=== PATIENT | female | born 1940 | race Caucasian/White ===

== ENCOUNTER 2017-09-26 07:42 | Emergency (ER) | payer MEDICARE, OTHER ==
[~2017-09-26] VITALS: Ht 165.1 cm; Wt 93.3 kg
[~2017-09-26 07:42] MED LIST: CYAN1000P IM; LEVO.05 PO; NORC7.5T PO; ST JTAB PO; TOPR25TA2 PO; ZOFR4TAB3 SL
[2017-09-26 07:43] VITALS: BP 189/86; PULSE 81; RESP 16; TEMP 97.5; O2SAT 95
[2017-09-26] MEDS ORDERED: METO1TAB9 PO (08:03)
[2017-09-26] MEDS ORDERED: ASPI1TAB57 PO (08:03)
[2017-09-26] MEDS ORDERED: VITA10002 PO (08:03)
[2017-09-26] MEDS ORDERED: DIAZ5 PO (08:03)
[2017-09-26] MEDS ORDERED: LEVO75TA3 PO (08:03)
--- NOTE | 2017-09-26 08:19 | PD ---
HPI Chief Complaint: Headache Time Seen by Provider: 08:06 Travel History International Travel<30 days: No Contact w/Intl Traveler<30days: No Traveled to known affect area: No History of Present Illness HPI This patient complains of headache. Duration 5 days. Severity is moderate. There is no thunderclap onset. No neurologic deficit. No fever or or injury. She takes no blood thinners be on baby aspirin. Headache is located behind the left ear. It is unusual for the patient to have a headache. No alleviating factors. No exacerbating factors. PFSH Past Medical History Hx Anticoagulant Therapy: Yes (asa 81mg) Heart Rhythm Problems: Yes Cardiac Catheterization: Yes (2013) Cardiovascular Problems: Yes (htn on meds, pacemaker, svt) High Cholesterol: Yes COPD: Yes Coronary Artery Disease: Yes Diminished Hearing: No GERD: Yes Hypertension: Yes Implanted Vascular Access Dvce: Yes Musculoskeletal: Yes Immunizations Current: No Thyroid Disease: Yes (HYPOTHYROID) Tetanus Vaccination: > 5 Years Influenza Vaccination: No ?: Not Menopausal: Yes : 7 Para: 4 Miscarriage: 3 Ectopic : Yes Ovarian Cysts: Yes (RUPTURED OVARY, REMOVED.) Tubal Ligation: Yes Past Surgical History Abdominal Surgery: Yes (EXPLORATORY LAP, ECTOPIC ,) Appendectomy: Yes Cardiac Surgery: Yes (PACEMAKER - 2004) Cholecystectomy: No Ear Surgery: No Endocrine Surgery: No Eye Surgery: Yes (LEFT CATARACT) Genitourinary Surgery: No Gynecologic Surgery: Yes (1.5 OVARY REMOVED.) Joint Replacement: No Oral Surgery: No Pacemaker: Yes (MEDTRONIC-DEMAND PACER) Thoracic Surgery: No Other Surgery: Yes (CAROTID ARTERY LEFT) Social History Alcohol Use: Yes (OCCASIONALLY) Tobacco Use: No (QUIT 09/22/07; SMOKED 1 PPD X 40 YEARS.) Substance Use: No Allergies-Medications (Allergen,Severity, Reaction): Coded Allergies: milk (Unverified Allergy, Severe, "lactose intolerant", 09/26/17) penicillin G (Unverified Allergy, Severe, hives, 09/26/17) povidone-iodine (Unverified Allergy, Severe, RASH, 09/26/17) prochlorperazine (Unverified Allergy, Severe, "mouth swelled", 09/26/17) DYSTONIA atorvastatin (Unverified Adverse Reaction, Severe, "muscle aches", 09/26/17 ) codeine (Unverified Adverse Reaction, Severe, "NAUSEA,MAKES ME CRAZY", ) prednisone (Unverified Adverse Reaction, Severe, HYPER, 09/26/17) Reported Meds & Prescriptions Reported Meds & Active Scripts Active Tramadol (Tramadol HCl) 50 Mg Tab 50 Mg PO Q6H PRN Reported Valium (Diazepam) 5 Mg Tab 5 Mg PO DIRECTED Metoprolol Succinate ER 24 HR (Metoprolol Succinate) 50 Mg Tab 50 Mg PO DAILY Levothyroxine (Levothyroxine Sodium) 75 Mcg Tab 75 Mcg PO DAILY Vitamin B-12 (Cyanocobalamin) 1,000 Mcg Tab 1,000 Mcg PO DAILY Aspirin 81 (Aspirin) 81 Mg Tabdr 81 Mg PO DAILY Review of Systems General / Constitutional: No: Fever Eyes: No: Visual changes HENT: Positive: Headaches Cardiovascular: No: Chest Pain or Discomfort Respiratory: No: Shortness of Breath Gastrointestinal: No: Abdominal Pain Genitourinary: No: Dysuria Musculoskeletal: No: Pain Skin: No Rash Neurologic: Positive: Headache, No: Weakness Psychiatric: No: Depression Endocrine: No: Polydipsia Hematologic/Lymphatic: No: Easy Bruising Physical Exam Narrative GENERAL: Well-nourished, well-developed patient with headache . SKIN: Focused skin assessment reveals no rash and nodules. Skin is Warm and dry. HEAD: Atraumatic. Normocephalic. EYES: Pupils equal and round. No scleral icterus. No injection or drainage. ENT: No nasal bleeding or discharge. Mucous membranes pink and moist. NECK: Trachea midline. No JVD. She has left-sided carotid endarterectomy scar CARDIOVASCULAR: Regular rate and rhythm. No murmur appreciated. RESPIRATORY: No accessory muscle use. Clear to auscultation. Breath sounds equal bilaterally. GASTROINTESTINAL: Abdomen soft, non-tender, nondistended. Hepatic and splenic margins not palpable. MUSCULOSKELETAL: No obvious deformities. No clubbing. No cyanosis. No edema. NEUROLOGICAL: Awake and alert. No obvious cranial nerve deficits. Motor grossly within normal limits. Normal speech. PSYCHIATRIC: Appropriate mood and affect; insight and judgment normal. Data Data Last Documented VS Vital Signs Date Time Temp Pulse Resp B/P (MAP) Pulse Ox O2 Delivery O2 Flow Rate FiO2 09/26/17 08:23 165/75 (105) 09/26/17 08:03 Room Air 09/26/17 07:43 97.5 [address] Brain W/O Iv Contrast(Rout) (09/26/17 ) [facility] Medical Decision Making Medical Screen Exam Complete: Yes Emergency Medical Condition: Yes Medical Record Reviewed: Yes Differential Diagnosis Differential diagnosis includes migraine, tension headache, cluster headache, meningitis. Narrative Course I have reviewed the patient's electronic medical record. Patient has no objective findings on exam. She is neurologically intact. No meningeal signs Presentation not consistent with subarachnoid hemorrhage Brain CT is normal Blood pressure recheck 164 systolic I prescribed 12 tramadol Recommend she contact her family physician tomorrow for follow-up Diagnosis Primary Impression: Headache Qualified Codes: R51 - Headache Additional Impression: Accelerated hypertension Additional Instructions: The patient was advised to follow up with their physician and return if they worsen. The patient was warned about potential sedation for the medications they will receive on prescription. Check and record blood pressure daily Med/Other Pt SpecificInfo: Prescription(s) given Scripts Tramadol (Tramadol) 50 Mg Tab 50 MG PO Q6H Y for PAIN, #12 TAB 0 Refills Prov: Lui Arita MD 09/26/17 Disposition: 01 DISCHARGE HOME Condition: Stable Lui Arita MD Sep 26, 2017 08:19
[2017-09-26 08:23] VITALS: BP 165/75
--- NOTE | 2017-09-26 08:37 | RADRPT ---
EXAM DATE/TIME: 09/26/2017 08:26 [place] COMPARISON: CT BRAIN W/O CONTRAST, October 26, 2014, 23:31. INDICATIONS : Left sided headache. RADIATION DOSE: 56.43 CTDIvol (mGy) MEDICAL HISTORY : Hypothyroidism. Hypertension. Cardiovascular diseaseAnticoagulant therapy. SURGICAL HISTORY : Pacemaker. Appendectomy.Tubal ligation. ENCOUNTER: Initial ACUITY: 4 - 6 days PAIN SCALE: 7/10 LOCATION: Left cranial TECHNIQUE: Multiple contiguous axial images were obtained of the head. Using automated exposure control and adj ustment of the mA and/or kV according to patient size, radiation dose was kept as low as reasonably a chievable to obtain optimal diagnostic quality images. DICOM format image data is available electro nically for review and comparison. FINDINGS: CEREBRUM: The ventricles are normal for age. No evidence of midline shift, mass lesion, hemorrhage or acute in farction. No extra-axial fluid collections are seen. POSTERIOR FOSSA: The cerebellum and brainstem are intact. The 4th ventricle is midline. The cerebellopontine angle i s unremarkable. EXTRACRANIAL: The visualized portion of the orbits is intact. SKULL: The calvaria is intact. No evidence of skull fracture. CONCLUSION: Negative for an acute process.. Taurus Khalil MD FACR on September 26, 2017 at 8:35 Board Certified Radiologist. This report was verified electronically.
[2017-09-26] MEDS ORDERED: TRAM50TA PO (08:46)
== END 2017-09-26 08:55 | disposition home or self-care (01) ==
LOC: PHED 07:42
DX: R51 Headache (principal); I10 Essential (primary) hypertension; E78.00 Pure hypercholesterolemia, unspecified; J44.9 Chronic obstructive pulmonary disease, unspecified; I25.10 Atherosclerotic heart disease of native coronary artery without angina pectoris; K21.9 Gastro-esophageal reflux disease without esophagitis; E03.9 Hypothyroidism, unspecified; I47.1 Supraventricular tachycardia; Z95.0 Presence of cardiac pacemaker
CPT/HCPCS: 70450; 99283